=== PATIENT | female | born 1935 | race Caucasian/White ===

== ENCOUNTER 2016-05-08 11:37 | Outpatient (CLI) | payer OTHER ==
--- NOTE | 2016-05-08 13:01 | DIAGNOSTIC IMAGING REPORT ---
PROCEDURE: DEXA BONE DENSITY STUDY CLINICAL INDICATION: OSTEOPENIA COMPARISON: DEXA 01/14/2014 FINDINGS: LUMBAR SPINE: Bone mineral density 0.931 g/cm2, T score -1.1 osteopenia which represents a 12.3% increase since the previous study LEFT HIP: Bone mineral density 0.835 g/cm2, T score -0.9 normal which represents a 1% improvement from the previous study LEFT FEMORAL NECK: Bone mineral density 0.68 g/cm2, T score -1.5 osteopenia which represents a 9.9% increase since previous study FRACTURE RISK CALCULATION ( when applicable): 10-year fracture risk of a major osteoporotic fracture 13 % and of a hip fracture 3.3% (T score greater or equal to -1.0 to: NORMAL) (T score from -1.1 to -2.4: OSTEOPENIA) (T score ess than or equal to -2.5: OSTEOPOROSIS) IMPRESSION: 1. Osteopenia lumbar spine and femoral neck with 12.3 and 9.9% improvements in bone mineral density since the previous study
== END 2016-05-08 23:00 ==
LOC: XR SRH 11:37
DX: M85.88 Other specified disorders of bone density and structure, other site (principal)